=== PATIENT | male | born 1960 | race Caucasian/White ===

== ENCOUNTER 2021-02-09 13:32 | Emergency (ER) | payer BC ==
[2021-02-09] MEDS ORDERED: Diphtheria,Pertussis(Acell),Tetanus Vaccine 0.5 ML Syringe IM ONE (14:07)
--- NOTE | 2021-02-09 14:14 | EDM.PDOC ---
ED HPI GENERAL MEDICAL PROBLEM - General Chief Complaint: Upper Extremity Injury/Pain Stated Complaint: FISH HOOK IN L THUMB Time Seen by Provider: 02/09/21 14:00 Source of Information: Reports: Patient. Denies: Old Records History Limitations: Reports: No Limitations - History of Present Illness INITIAL COMMENTS - FREE TEXT/NARRATIVE: 60 yo male here with a fish hook in the dorsum of his L thumb. Tetanus is not UTD. 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 (see below) (none) - Related Data Allergies Allergy/AdvReac Type Severity Reaction Status Date / Time No Known Allergies Allergy Verified 02/09/21 13:53 Home Meds: Home Meds Metoprolol Succinate [Toprol XL] 25 mg PO DAILY 02/09/21 [History] atorvaSTATin Calcium [Lipitor] 40 mg PO DAILY 02/09/21 [History] metFORMIN [Glucophage XR] 500 mg PO BIDMEALS 02/09/21 [History] Past Medical History HEENT History: Reports: Impaired Vision Cardiovascular History: Reports: Hypertension Gastrointestinal History: Reports: None Musculoskeletal History: Reports: None Endocrine/Metabolic History: Reports: Other (See Below) - Past Surgical History Head Surgeries/Procedures: Reports: None HEENT Surgical History: Reports: Laser Surgery Cardiovascular Surgical History: Reports: None GI Surgical History: Reports: Hernia, Abdominal Endocrine Surgical History: Reports: None Musculoskeletal Surgical History: Reports: Other (See Below) Dermatological Surgical History: Reports: None Social & Family History - Caffeine Use Caffeine Use: Reports: None Review of Systems - Review of Systems Review Of Systems: See Below Constitutional: Reports: No Symptoms Skin: Reports: Wound (puncture from fish hook in L thumb) Neurological: Reports: No Symptoms ED EXAM, GENERAL - Physical Exam Exam: See Below Exam Limited By: No Limitations General Appearance: Alert, WD/WN, No Apparent Distress Extremities: Other (fish hook in L thumb just prox to the prox edge of his thumbnail) Neurological: Alert, Oriented, CN II-XII Intact, Normal Cognition, No Motor/Sensory Deficits Psychiatric: Normal Affect, Normal Mood Skin Exam: Warm, Dry, Normal Color, No Rash. No: Intact ED TRAUMA EXTREMITY PROCEDURES - Foreign Body Removal Indication:: Fish hook in L thumb Performing Doctor:: John Jacobo Foreign Body Other Location Comment:: Fish hook Anesthesia Type: Local (5 ml of 1% lidocaine locally and via digital block) Findings:: Hook removed by covering maria alejandra with a #18 g needle. Complications:: No Course - Vital Signs Last Recorded V/S: Last Vital Signs Temp 36.5 C 02/09/21 14:00 Pulse 66 02/09/21 14:00 Resp 16 02/09/21 14:00 BP 124/84 02/09/21 14:00 Pulse Ox 100 02/09/21 14:00 - Orders/Labs/Meds Orders: Active Orders 24 hr Category Date Time Status Vaccines to be Administered [RC] PER UNIT ROUTINE Care 02/09/21 14:07 Ordered Meds: Medications Discontinued Medications Generic Name Dose Route Start Last Admin Trade Name Freq PRN Reason Stop Dose Admin Diphtheria/Tetanus/Acell Pertussis 0.5 ml 02/09/21 14:07 Diphtheria,Pertussis(Acell),Tetanus Vaccine 0.5 Ml Syringe IM 02/09/21 14:08 .ONCE ONE Lidocaine HCl 5 ml 02/09/21 14:07 Lidocaine 1% 5 Ml Sdv INJECT 02/09/21 14:08 ONETIME ONE Departure - Departure Time of Disposition: 14:45 Disposition: Home, Self-Care 01 Condition: Good Clinical Impression: Fish hook injury of left thumb Qualifiers: Encounter type: initial encounter Qualified Code(s): S69.92XA - Unspecified injury of left wrist, hand and finger(s), initial encounter - Discharge Information *PRESCRIPTION DRUG MONITORING PROGRAM REVIEWED*: Not Applicable *COPY OF PRESCRIPTION DRUG MONITORING REPORT IN PATIENT NATHALIE: Not Applicable Referrals: PCP,None [Primary Care Provider] - Additional Instructions: Clean area twice daily with soap and water. Dry. Apply antibiotic ointment and a new dressing. Report signs of infection. Sepsis Event Note (ED) - Evaluation Sepsis Screening Result: No Definite Risk - Focused Exam Vital Signs: Vital Signs Temp Pulse Resp BP Pulse Ox 02/09/21 14:00 36.5 C 66 16 124/84 100 02/09/21 13:59 36.5 C 66 16 124/84 100 - My Orders Last 24 Hours: My Active Orders 02/09/21 14:07 Vaccines to be Administered [RC] PER UNIT ROUTINE - Assessment/Plan Last 24 Hours: My Active Orders 02/09/21 14:07 Vaccines to be Administered [RC] PER UNIT ROUTINE
[2021-02-09] MEDS ORDERED: Bacitracin Oint 1 GM U/D Packet TOP ONE (14:40)
== END 2021-02-09 14:54 | disposition home or self-care (01) ==
LOC: JP.ED 13:32
DX: S60.352A Superficial foreign body of left thumb, initial encounter (principal); I10 Essential (primary) hypertension; Z23 Encounter for immunization; Z79.899 Other long term (current) drug therapy; W45.8XXA Other foreign body or object entering through skin, initial encounter
CPT/HCPCS: 64450; 90471; 90715; 99283; 99283-25